=== PATIENT | female | born 1985 | race Caucasian/White ===

== ENCOUNTER 2017-05-15 19:11 | Emergency (ER) | payer SELFPAY ==
[~2017-05-15] VITALS: Ht 167.6 cm; Wt 104.3 kg
[2017-05-15 20:10] VITALS: BP 134/87
[2017-05-15] MEDS ORDERED: KETOROLAC TROMETH 60MG/2ML VIAL IM ONE (20:15)
== END 2017-05-15 20:17 | disposition home or self-care (01) ==
LOC: ER 19:15
DX: K08.89 Other specified disorders of teeth and supporting structures (principal); Z88.8 Allergy status to other drugs, medicaments and biological substances
CPT/HCPCS: 96372; 99283; J1885

== ENCOUNTER 2022-02-17 09:36 | Emergency (ER) | payer MEDICAID ==
[~2022-02-17] VITALS: Ht 167.6 cm; Wt 95.3 kg
[2022-02-17] MEDS ORDERED: KETOROLAC TROMETH 60MG/2ML VIAL IM ONE (11:00)
[2022-02-17] MEDS ORDERED: cefTRIAXone W LIDOCAINE 1 GM IM IM ONE (11:00)
[2022-02-17] MEDS ORDERED: CLIN300C8 PO (11:04)
[2022-02-17] MEDS ORDERED: CEPH-509 PO (11:04)
[2022-02-17] MEDS ORDERED: IBU600T PO (11:04)
[2022-02-17] MEDS ORDERED: cefTRIAXone SOD 1,000 MG VL IM ONE (11:15)
[2022-02-17 11:35] VITALS: BP 138/67
== END 2022-02-17 11:38 | disposition home or self-care (01) ==
LOC: ER 09:36
DX: K02.9 Dental caries, unspecified (principal); K08.89 Other specified disorders of teeth and supporting structures; Z88.8 Allergy status to other drugs, medicaments and biological substances
CPT/HCPCS: 96372; 99284; J0696; J1885

== ENCOUNTER 2022-08-05 10:30 | Emergency (ER) | payer SELFPAY ==
[~2022-08-05] VITALS: Ht 167.6 cm; Wt 106.9 kg
[~2022-08-05 10:30] MED LIST: CEPH-509 PO; CLIN300C8 PO; IBU600T PO
[2022-08-05 10:56] VITALS: BP 150/80
[2022-08-05] MEDS ORDERED: HYDROcodone-ACET 10/325MG TAB PO ONE (13:45)
[2022-08-05] MEDS ORDERED: IBUP600T27 PO (15:01)
[2022-08-05] MEDS ORDERED: HYDR-4902 PO (15:01)
[2022-08-05] MEDS ORDERED: DICL500C76 PO (15:01)
== END 2022-08-05 15:22 | disposition home or self-care (01) ==
LOC: ER 10:30
DX: J02.8 Acute pharyngitis due to other specified organisms (principal); B97.89 Other viral agents as the cause of diseases classified elsewhere; N61.0 Mastitis without abscess; Z79.1 Long term (current) use of non-steroidal anti-inflammatories (NSAID); Z79.2 Long term (current) use of antibiotics; Z88.8 Allergy status to other drugs, medicaments and biological substances
CPT/HCPCS: 87070; 87880

== ENCOUNTER 2022-10-04 21:07 | Inpatient (IN) | payer MEDICAID ==
[~2022-10-04] VITALS: Ht 167.6 cm; Wt 101.0 kg
[~2022-10-04 21:07] MED LIST changes: +DICL500C76 PO; +HYDR-4902 PO; +IBUP600T27 PO
[2022-10-04 23:27] LABS: Basophils # (auto) 0.1 10 ^3/uL (0-0.2); Basophils % (auto) 0.6 % (0.0-2.0); Eosinophils # (auto) 0.1 10 ^3/uL (0-0.8); Hematocrit 39.6 % (36.0-46.0); Hemoglobin 12.6 g/dL (12.2-16.2); Lymphocytes # (auto) 3.6 10 ^3/uL (0.4-5.4); Lymphocytes % (auto) 30.9 % (10.0-50.0); Mean Corpuscular Hgb Conc. 31.9 g/dL (32.0-36.0); Mean Corpuscular Volume 90.9 fL (80.0-100.0); Monocytes % (auto) 8.4 % (0.0-12.0); Neutrophils # (auto) 6.8 10 ^3/uL (1.6-8.6); Neutrophils % (auto) 59.1 % (37.0-80.0); Red Blood Cells 4.35 10^6/uL (4.0-5.20); Red Cell Distribution Width 14.1 % (11.8-14.3); White Blood Cell 11.5 10^3/uL (4.4-10.8)
[2022-10-04 23:50] LABS: Albumin 3.4 g/dL (3.4-5.0); BUN/Creatinine Ratio 13.5; Calcium 9.1 mg/dL (8.5-10.1); Potassium 3.7 mmol/L (3.5-5.1)
[2022-10-04 23:53] LABS: Bilirubin, Total 0.2 mg/dL (0.2-1.0); Total Protein 7.3 g/dL (6.4-8.2)
[2022-10-05] MEDS ORDERED: ASPirin 325 MG TAB PO ONE (01:00)
[2022-10-05] MEDS ORDERED: NITROGLYCERIN 0.4 MG SL TAB SL PRN (02:30)
[2022-10-05 05:18] LABS: Basophils # (auto) 0.1 10 ^3/uL (0-0.2); Basophils % (auto) 0.6 % (0.0-2.0); Eosinophils # (auto) 0.1 10 ^3/uL (0-0.8); Eosinophils % (auto) 1.2 % (0.0-7.0); Hematocrit 38.3 % (36.0-46.0); Hemoglobin 12.6 g/dL (12.2-16.2); Lymphocytes # (auto) 3.5 10 ^3/uL (0.4-5.4); Lymphocytes % (auto) 30.7 % (10.0-50.0); Mean Corpuscular Hemoglobin 29.8 pg (28.0-32.0); Mean Corpuscular Hgb Conc. 32.9 g/dL (32.0-36.0); Mean Corpuscular Volume 90.5 fL (80.0-100.0); Monocytes # (auto) 1.1 10 ^3/uL (0-1.3); Monocytes % (auto) 9.4 % (0.0-12.0); Neutrophils # (auto) 6.7 10 ^3/uL (1.6-8.6); Neutrophils % (auto) 58.1 % (37.0-80.0); Nucleated Red Blood Cells % 0.1 %; Red Blood Cells 4.23 10^6/uL (4.0-5.20); Red Cell Distribution Width 14.1 % (11.8-14.3); White Blood Cell 11.5 10^3/uL (4.4-10.8)
[2022-10-05 05:34] LABS: Albumin 3.6 g/dL (3.4-5.0); Calcium 8.7 mg/dL (8.5-10.1); Potassium 3.6 mmol/L (3.5-5.1)
[2022-10-05 05:38] LABS: BUN/Creatinine Ratio 18.6; Bilirubin, Total 0.3 mg/dL (0.2-1.0); Total Protein 7.6 g/dL (6.4-8.2)
[2022-10-05] MEDS: MORPHINE SULFATE INJ 2 MG/ml SYRG IV PRN ×4 (09:31→20:51)
[2022-10-05] MEDS ORDERED: LORazepam 2MG/ML-1ML VIAL IV PRN ×3 (10:00→10:45)
[2022-10-05] MEDS ORDERED: LORazepam 2MG/ML-1ML VIAL ONE (10:09)
[2022-10-05] MEDS ORDERED: MORPHINE SULFATE INJ 2 MG/ml SYRG IV PRN (12:15)
[2022-10-05] MEDS ORDERED: HYDROcodone-ACET 5/325MG TAB PO PRN (12:15)
[2022-10-05] MEDS ORDERED: diphenhdrAMINE HCL 50 MG/1 ML VL IV ONE (21:45)
[2022-10-06] MEDS: MORPHINE SULFATE INJ 2 MG/ml SYRG IV PRN ×4 (03:04→18:55)
[2022-10-06 09:59] VITALS: BP 138/81
[2022-10-06] MEDS ORDERED: LORazepam 2MG/ML-1ML VIAL IV PRN (11:15)
[2022-10-06 11:30] VITALS: BP 138/87
[2022-10-06 12:35] VITALS: BP 116/79
[2022-10-06] MEDS ORDERED: ALPRAZolam 0.5 MG TAB PO PRN (13:30)
[2022-10-06] MEDS: HYDROcodone-ACET 10/325MG TAB PO PRN ×2 (13:42→20:48)
[2022-10-06] MEDS ORDERED: LORazepam 2MG/ML-1ML VIAL IV ONE (15:15)
[2022-10-06 16:57] VITALS: BP 114/76
[2022-10-06 22:00] VITALS: BP 112/72
[2022-10-07] MEDS: HYDROcodone-ACET 10/325MG TAB PO PRN ×3 (03:44→15:35)
[2022-10-07 05:00] VITALS: BP 104/68
[2022-10-07] MEDS: MORPHINE SULFATE INJ 2 MG/ml SYRG IV PRN ×2 (06:47→12:22)
[2022-10-07 09:06] VITALS: BP 124/77
[2022-10-07] MEDS ORDERED: diphenhdrAMINE HCL 50 MG/1 ML VL IV PRN (12:00)
[2022-10-07] MEDS ORDERED: ONDANSETRON HCL 4 MG/2 ML VIAL IV PRN (12:15)
[2022-10-07 12:50] VITALS: BP 120/59
[2022-10-07] MEDS ORDERED: diphenhdrAMINE HCL 25 MG CAP PO PRN (16:00)
[2022-10-07 16:36] VITALS: BP 113/73
[2022-10-07] MEDS ORDERED: GADOTERATE MEG 10 MMOL/20ml INJ (0.5MMOL/ml) IV ONE (16:44)
[2022-10-07 19:42] VITALS: BP 116/74
[2022-10-07] MEDS ORDERED: HYDROcodone-ACET 10/325MG TAB PO ONE (20:00)
== END 2022-10-07 20:20 | disposition home or self-care (01) | DRG 58 ==
LOC: ER 21:11 → TELE 10-05 02:32 → TELE-EAST 10-06 09:42
PROVIDERS: ADMIT Internal Medicine; ATTEND Internal Medicine
DX: R29.810 Facial weakness (principal); E04.1 Nontoxic single thyroid nodule; F17.290 Nicotine dependence, other tobacco product, uncomplicated; F32.A Depression, unspecified; F41.9 Anxiety disorder, unspecified; Z20.822 Contact with and (suspected) exposure to COVID-19; R20.0 Anesthesia of skin; H53.8 Other visual disturbances; R51.9 Headache, unspecified; R20.2 Paresthesia of skin; Z83.3 Family history of diabetes mellitus
CPT/HCPCS: 36415; 70551; 70553; 72142; 72157; 76536; 80053; 84443; 84484; 84702; 85025; 87426; 93005; 95819; 96374; 96375; 97163; G0378

== ENCOUNTER 2024-01-19 01:40 | Emergency (ER) | payer MEDICAID, OTHER ==
[~2024-01-19] VITALS: Ht 167.6 cm; Wt 101.2 kg
[2024-01-19 02:50] LABS: Basophils # (auto) 0.1 10 ^3/uL (0-0.2); Basophils % (auto) 0.8 % (0.0-2.0); Eosinophils # (auto) 0.1 10 ^3/uL (0-0.8); Hematocrit 38.6 % (36.0-46.0); Lymphocytes # (auto) 2.4 10 ^3/uL (0.4-5.4); Lymphocytes % (auto) 19.9 % (10.0-50.0); Mean Corpuscular Hemoglobin 30.1 pg (28.0-32.0); Mean Corpuscular Hgb Conc. 33.8 g/dL (32.0-36.0); Mean Corpuscular Volume 89.1 fL (80.0-100.0); Monocytes # (auto) 0.7 10 ^3/uL (0-1.3); Monocytes % (auto) 5.7 % (0.0-12.0); Neutrophils # (auto) 8.8 10 ^3/uL (1.6-8.6); Neutrophils % (auto) 72.6 % (37.0-80.0); Red Blood Cells 4.33 10^6/uL (4.0-5.20); Red Cell Distribution Width 14.6 % (11.8-14.3); White Blood Cell 12.1 10^3/uL (4.4-10.8)
[2024-01-19 03:00] LABS: Alanine Aminotransferase 61 U/L (7-40); Albumin 4.5 g/dL (3.2-4.8); Alkaline Phosphatase 66 U/L (46-116); Anion Gap 6 (5-15); Aspartate Aminotransferase 58 U/L (13-40); BUN/Creatinine Ratio 14.9 (10.0-20.0); Bilirubin, Total 0.6 mg/dL (0.2-1.0); Blood Urea Nitrogen 13 mg/dL (9-23); Carbon Dioxide 24 mmol/L (20-30); Chloride 104 mmol/L (98-107); Glucose 103 mg/dL (74-106); Sodium 134 mmol/L (136-145); Total Protein 7.1 g/dL (5.7-8.2)
[2024-01-19] MEDS: SODIUM CHLORIDE 0.9% 1,000 ML IVB ONE (03:30)
[2024-01-19] MEDS: MORPHINE SULFATE 10 MG/ML INJ 1ML SDV IV ONE (03:30)
[2024-01-19] MEDS: KETOROLAC TROMETH 30 MG/ML 1ML VIAL IV ONE (05:00)
[2024-01-19] MEDS: ONDANSETRON HCL 4 MG/2 ML VIAL IV ONE (05:01)
[2024-01-19] MEDS: MORPHINE SULFATE INJ 2 MG/ml SYRG IV ONE (05:36)
[2024-01-19 06:54] LABS: Urine Bacteria FEW /hpf (None Seen); Urine Blood 3+ /uL (Negative); Urine Clarity Clear (Clear); Urine Color Light-Yellow (Yellow); Urine Mucus FEW (None Seen); Urine Protein, UAD Negative (Negative); Urine Specific Gravity 1.015 (1.001-1.035); Urine Urobilinogen Normal (Negative); Urine WBC 7 /hpf (0 - 5); Urine pH 5.5 (5.0-9.0)
[2024-01-19] MEDS ORDERED: IBU600T PO (10:42)
[2024-01-19 11:01] VITALS: BP 125/76; PULSE 82; RESP 20; TEMP 98.3; O2SAT 100
== END 2024-01-19 11:05 | disposition home or self-care (01) ==
LOC: EDUNIT# 01:40 → ER 01:40 → EDBD 01:40 → ER 11:02
DX: N83.201 Unspecified ovarian cyst, right side (principal); R10.2 Pelvic and perineal pain; R31.9 Hematuria, unspecified; Z88.8 Allergy status to other drugs, medicaments and biological substances; Z90.49 Acquired absence of other specified parts of digestive tract
CPT/HCPCS: 36415; 74176; 76817; 76856; 80053; 81001; 84702; 85025; 96361; 96374; 96375; 99285; J1885; J2270; J2405; J7030

== ENCOUNTER 2025-04-01 12:30 | Inpatient (IN) | payer OTHER ==
[~2025-04-01] VITALS: Ht 167.6 cm; Wt 104.3 kg
[~2025-04-01 12:30] MED LIST changes: -CEPH-509 PO; -CLIN300C8 PO; -DICL500C76 PO; -HYDR-4902 PO; -IBUP600T27 PO
[2025-04-01] MEDS: NITROGLYCERIN 0.4 MG SL TAB SL ONE (13:01)
--- NOTE | 2025-04-01 13:02 | ECG ---
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
[2025-04-01 13:33] LABS: Hematocrit 35.8 % (36.0-46.0); Hemoglobin 12.2 g/dL (12.2-16.2); Mean Corpuscular Hemoglobin 30.6 pg (28.0-32.0); Mean Corpuscular Volume 90.2 fL (80.0-100.0); Nucleated Red Blood Cells % 0.1 %
[2025-04-01 13:43] LABS: Potassium 4.4 mmol/L (3.5-5.1); Sodium 142 mmol/L (136-145)
[2025-04-01 13:44] LABS: Anion Gap 9 (5-15); Calcium 9.1 mg/dL (8.7-10.4); Carbon Dioxide 24 mmol/L (20-31)
[2025-04-01 13:49] LABS: BUN/Creatinine Ratio 16.7 (10.0-20.0); Blood Urea Nitrogen 15 mg/dL (9-23); Chloride 109 mmol/L (98-107); Glucose 115 mg/dL (74-106)
[2025-04-01] MEDS: HYDROcodone-ACET 10/325MG TAB PO ONE (13:56)
[2025-04-01] MEDS: METOPROLOL TARTRATE 25 MG TAB PO ONE (15:45)
--- NOTE | 2025-04-01 16:03 | ED.PDOC ---
History of Present Illness HPI Comments 40-year-old female brought by paramedics because of chest pain. She was sitting down when she started to have chest pain. She has a history of premature ventricular contractions for which she does take metoprolol. Apart from premature ventricular contraction she does have a history of hypotension. Patient started to have this chest pain yesterday progressively getting worse this morning. She has been followed up [facility] many times for similar symptom. Heart rate was 15 on arrival. Continues to have chest pain in the ER. She did take aspirin. Denies any other symptoms. Chief Complaint: Chest Pain Time Seen by MD: 12:44 Primary Care Provider: JENNIFER Reviewed Notes: Nurses Notes, Medications, Allergies Allergies: Coded Allergies: Metoclopramide (Verified Allergy, Unknown, 05/15/17) Nalbuphine (Verified Allergy, Unknown, 05/15/17) Home Meds Active Scripts Ibuprofen Micronized (MOTRIN TABLET) 600 Mg Tb, 600 MG PO TID PRN for 5 Days, #15 TAB *Black box warning-NSAIDS can increase risk of [place] & hypertension, GI irritation, ulceration, bleed, perferation. Do not use post cardiac surgery. Use short duration/lowest effective dose. 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: No Pertinent FILM LIBRARY CLERK History Family History Family History: Reviewed,noncontributory to illness Social History Smoker: Non-Smoker Alcohol: Denies ETOH Use Drugs: Denies Drug Use Lives In: Home Constitutional: denies: chills, diaphoresis, fatigue, fever, malaise, sweats, weakness, others EENTM: denies: blurred vision, double vision, ear bleeding, ear discharge, ear drainage, ear pain, ear ringing, eye pain, eye redness, hearing loss, mouth pain, mouth swelling, nasal discharge, nose bleeding, nose congestion, nose pain, photophobia, tearing, throat pain, throat swelling, voice changes, others Respiratory: denies: cough, hemoptysis, orthopnea, SOB at rest, shortness of breath, SOB with excertion, stridor, wheezing, others Cardiovascular: reports: chest pain; denies: dizzy spells, diaphoresis, Dyspnea on exertion, edema, irregular heart beat, left arm pain, lightheadedness, palpitations, PND, syncope, others Gastrointestinal: denies: abdomen distended, abdominal pain, blood streaked bowels, constipated, diarrhea, dysphagia, difficulty swallowing, hematemesis, melena, nausea, poor appetite, poor fluid intake, rectal bleeding, rectal pain, vomiting, others Genitourinary: denies: abnormal vagina bleeding, burning, dyspareunia, dysuria, flank pain, frequency, hematuria, incontinence, pain, , vagina discharge, urgency, others Neurological: denies: dizziness, fainting, headache, left sided numbness, left sided weakness, numbness, paresthesia, pre-existing deficit, right sided numbness, right sided weakness, seizure, speech problems, tingling, tremors, weakness, others Musculoskeletal: denies: back pain, gout, joint pain, joint swelling, muscle pain, muscle stiffness, neck pain, others Integumetry: denies: bruises, change in color, change in hair/nails, dryness, laceration, lesions, lumps, rash, wounds, others Allergic/Immunocompromised: denies: Difficulty Healing, Frequent Infections, Hives, Itching, others Hematologic/Lymphatic: denies: anemia, blood clots, easy bleeding, easy bruising, swollen glands, others Endocrine: denies: excessive hunger, excessive sweating, excessive thirst, excessive urination, flushing, intolerance to cold, intolerance to heat, unexplained weight gain, unexplained weight loss, others Psychiatric: denies: anxiety, bipolar disorder, depression, hopeless, panic disorder, schizophrenia, sleepless, suicidal, others Physical Exam General Appearance: Moderate Distress HEENT: Normal ENT Inspection, Pharynx Normal, TMs Normal Neck: Full Range of Motion, Non-Tender, Normal, Normal Inspection Respiratory: Chest Non-Tender, Lungs Clear, No Accessory Muscle Use, No Respiratory Distress, Normal Breath Sounds Cardiovascular: No Edema, No JVD, No Murmur, No Gallop, Normal Peripheral Pulses, Regular Rate/Rhythm Breast Exam: Deferred Gastrointestinal: No Organomegaly, Non Tender, No Pulsatile Mass, Normal Bowel Sounds, Soft Genitalia: Deferred Pelvic: Deferred Rectal: Deferred Extremities: No calf tenderness, Normal capillary refill, Normal inspection, Normal range of motion, Non-tender, No pedal edema Musculoskeletal : Apperance: Normal Neurologic: Alert, live hanger II-XII nml as Tested, No Motor Deficits, Normal Affect, Normal Mood, No Sensory Deficits Cerebellar Function: Normal Reflexes: Normal Skin: Dry, Normal Color, Warm Peripheral Pulses: 3+ Radial (R), 3+ Radial (L) Lymphatic: No Adenopathy Was a procedure done? Was a procedure done?: No Differential Dx Considerations may include: Arrhythmia Electrolyte imbalance X-Ray, Labs, Meds, VS Vital Signs Date Time Temp Pulse Resp B/P (MAP) Pulse Ox O2 Delivery O2 Flow Rate FiO2 04/01/25 16:44 61 129/82 04/01/25 16:02 47 04/01/25 15:45 61 118/85 04/01/25 15:32 126/72 04/01/25 13:41 98.7 56 16 122/84 (97) 98 98.7 04/01/25 13:02 98.7 58 16 105/62 (76) 98 98.7 04/01/25 13:02 58 04/01/25 13:01 105/62 04/01/25 12:36 59 04/01/25 12:35 99.1 70 18 146/107 97 99.1 Lab Test 04/01/25 14:17 04/01/25 13:11 Range/Units Troponin I High Sensitivity < 3 L < 3 L </=34 ng/L White Blood Count 5.8 4.4-10.8 10^3/uL Red Blood Count 3.97 L 4.0-5.20 10^6/uL Hemoglobin 12.2 12.2-16.2 g/dL Hematocrit 35.8 L 36.0-46.0 % Mean Corpuscular Volume 90.2 80.0-100.0 fL Mean Corpuscular Hemoglobin 30.6 28.0-32.0 pg Mean Corpuscular Hemoglobin Concent 34.0 32.0-36.0 g/dL Red Cell Distribution Width 14.5 H 11.8-14.3 % Platelet Count 401 140-450 10^3/uL Mean Platelet Volume 7.4 6.9-10.8 fL Neutrophils (%) (Auto) 64.5 37.0-80.0 % Lymphocytes (%) (Auto) 29.2 10.0-50.0 % Monocytes (%) (Auto) 4.5 0.0-12.0 % Eosinophils (%) (Auto) 1.1 0.0-7.0 % Basophils (%) (Auto) 0.7 0.0-2.0 % Neutrophils # (Auto) 3.8 1.6-8.6 10 ^3/uL Lymphocytes # (Auto) 1.7 0.4-5.4 10 ^3/uL Monocytes # (Auto) 0.3 0-1.3 10 ^3/uL Eosinophils # (Auto) 0.1 0-0.8 10 ^3/uL Basophils # (Auto) 0 0-0.2 10 ^3/uL Nucleated Red Blood Cells 0.1 % Sodium Level 142 136-145 mmol/L Potassium Level 4.4 3.5-5.1 mmol/L Chloride Level 109 H 98-107 mmol/L Carbon Dioxide Level 24 20-31 mmol/L Anion Gap 9 5-15 Blood Urea Nitrogen 15 9-23 mg/dL Creatinine 0.90 0.550-1.02 mg/dL Glomerular Filtration Rate Calc 83 >90 mL/min BUN/Creatinine Ratio 16.7 10.0-20.0 Serum Glucose 115 H 74-106 mg/dL Calcium Level 9.1 8.7-10.4 mg/dL Current Medications Medications (Trade) Dose Ordered Sig/Dania Route Start Time Stop Time Status Last Admin Nitroglycerin (Ntrostat Sublingual) 0.4 mg ONCE ONCE SL 04/01/25 12:45 04/01/25 12:46 DC 04/01/25 13:01 Acetaminophen/ Hydrocodone Bitart ([place] 10/325MG Tab) 1 tab ONCE ONCE PO 04/01/25 13:45 04/01/25 13:46 DC 04/01/25 13:56 Metoprolol Tartrate (Lopressor Tablet) 25 mg ONCE ONCE PO 04/01/25 15:45 04/01/25 15:46 DC 04/01/25 15:45 Patient alert. Complaining of chest pain. EKG does show premature ventricular contraction. Vitals stable. Answering questions. Was given [place]. Was given metoprolol. Was given nitroglycerin. She continues to have chest pain. Cardiac marker within normal limits. She will need echocardiogram. Explained to the patient. Continue to monitor. [place] approved inpatient admission [id number]. Time of 1ST Reevaluation: 16:01 Reevaluation 1ST: Unchanged Patient Education/Counseling: Diagnosis, Treatment, Prognosis Family Education/Counseling: No Family Present SEPSIS Sepsis Screen Date sepsis recognized/suspect: Apr 01, 2025 Time Sepsis recognized/suspect: 1234 Recent Procedure: No On Antibiotic Therapy: No Respiratory Rate >20: No Heart Rate >90: No Temp<36 C (96.8 F) or >38.3 C: No SBP <90 or MAP <65 mmHG: No New Acute Mental Status Change: No Is the patient on CPAP, BIPAP,: No Physician Orders Electrocardigram (04/01/25 13:36) Electrocardigram (04/01/25 15:36) Urinalysis (04/01/25 12:44) Stat Ekg For Chest Pain (04/01/25 15:38) Vital Signs Date Time Temp Pulse Resp B/P (MAP) Pulse Ox O2 Delivery O2 Flow Rate FiO2 04/01/25 16:44 61 129/82 04/01/25 16:02 47 04/01/25 15:45 61 118/85 04/01/25 15:32 126/72 04/01/25 13:41 98.7 56 16 122/84 (97) 98 98.7 04/01/25 13:02 98.7 58 16 105/62 (76) 98 98.7 04/01/25 13:02 58 04/01/25 13:01 105/62 04/01/25 12:36 59 04/01/25 12:35 99.1 70 18 146/107 97 99.1 Laboratory Tests Test 04/01/25 13:11 White Blood Count 5.8 10^3/uL (4.4-10.8) Medications Medications Dose Ordered Sig/Dania Route Start Time Stop Time Status Last Admin Dose Admin Acetaminophen/ Hydrocodone Bitart 1 tab ONCE ONCE PO 04/01/25 13:45 04/01/25 13:46 DC 04/01/25 13:56 Metoprolol Tartrate 25 mg ONCE ONCE PO 04/01/25 15:45 04/01/25 15:46 DC 04/01/25 15:45 Nitroglycerin 0.4 mg ONCE ONCE SL 04/01/25 12:45 04/01/25 12:46 DC 04/01/25 13:01 Departure 1 Departure Time of Disposition: 16:02 Impression: Primary Impression: Chest pain of unknown etiology Additional Impression: Premature ventricular contraction Disposition: ADMITTED INPATIENT Admit to: Med Surg Condition: Guarded Critical Care Note Critical Care Time?: Yes (90 min-critical care time only) Critical care comment: Continues to have chest pain Stability Stability form required: No Heart Score Heart Score: Heart Score Response (Comments) Value History Slightly Suspicious 0 EKG Normal 0 Age <45 0 Risk Factors 1 or 2 risk factors 1 Troponin Normal limit 0 Total 1 SELVIN VEGA MD Apr 01, 2025 16:03
[2025-04-01] MEDS: MORPHINE SULFATE 4 MG/ML SYR/VIAL IV ONE (18:57)
[2025-04-01] MEDS: ONDANSETRON HCL 4 MG/2 ML VIAL IV ONE (18:58)
--- NOTE | 2025-04-01 19:40 | DVHHP2 ---
Admitting Diagnosis: Chest pain History of Present Illness 40-year-old female brought by paramedics because of chest pain. She was sitting down when she started to have chest pain. She has a history of premature ventricular contractions for which she does take metoprolol. Apart from premature ventricular contraction she does have a history of hypotension. Patient started to have this chest pain yesterday progressively getting worse this morning. She has been followed up [facility] many times for similar symptom. Heart rate was 15 on arrival. Continues to have chest pain in the ER. She did take aspirin. Denies any other symptoms. PAST MEDICAL HISTORY: HTN Surgical History: Denies all surgeries FIREFIGHTER History: No Pertinent FIREFIGHTER History Family History Family History: Reviewed,noncontributory to illness Social History Smoker: Non-Smoker Alcohol: Denies ETOH Use Drugs: Denies Drug Use Lives In: Home Patient Family History: Depression G8 MOTHER FH: atrial fibrillation G8 MOTHER High cholesterol G8 MOTHER Ventricular fibrillation G8 MOTHER Allergies: Coded Allergies: Metoclopramide (Verified Allergy, Unknown, 05/15/17) Nalbuphine (Verified Allergy, Unknown, 05/15/17) Home Meds Active Scripts Ibuprofen Micronized (MOTRIN TABLET) 600 Mg Tb, 600 MG PO TID PRN for 5 Days, #15 TAB *Black box warning-NSAIDS can increase risk of [place] & hypertension, GI irritation, ulceration, bleed, perferation. Do not use post cardiac surgery. Use short duration/lowest effective dose. Prov:LEDA MCKENNA MD 01/19/24 Current Medications Current Medications Medications (Trade) Dose Ordered Sig/Dania Route PRN Reason Start Time Stop Time Status Last Admin Sodium Chloride (Saline Lock Ns) 10 ml Q8HR IV 04/01/25 22:00 Docusate Sodium (Colace Capsule) 100 mg BIDPRN PRN PO FOR CONSTIPATION 04/01/25 20:00 Acetaminophen (Tylenol Tablet) 650 mg Q6HP PRN PO PAIN SCALE 1-3 OR TEMP>100.4 04/01/25 20:00 Acetaminophen/ Hydrocodone Bitart ([place] 5/325MG Tab) 1 tab Q4HP PRN PO MODERATE PAIN (4-6 PAIN SCALE) 04/01/25 20:00 Ondansetron HCl (Zofran) 4 mg Q4HP PRN IV NAUSEA / VOMITING 04/01/25 20:00 Enoxaparin Sodium (Lovenox) 40 mg DAILY SC 04/02/25 10:00 Nitroglycerin (Ntrostat Sublingual) 0.4 mg Q5MINP PRN SL FOR CHEST PAIN 04/01/25 20:00 Morphine Sulfate 2 mg Q30M PRN IV FOR CHEST PAIN 04/01/25 20:00 Vital Signs Vital Signs Date Time Temp Pulse Resp B/P (MAP) Pulse Ox O2 Delivery O2 Flow Rate FiO2 04/01/25 19:27 62 20 126/68 04/01/25 18:58 98 04/01/25 13:41 98.7 98.7 Physical Exam gen: 40 y.o. woman, lying in bed. mild distress HEENT: [facility] Heart: RRR Lung: CTA b/l Abd: soft, non-tender, non-distended Msk: no edema or cyanosis Neuro: Aox3, no focal deficit SEPSIS Sepsis Screen Date sepsis recognized/suspect: Apr 01, 2025 Time Sepsis recognized/suspect: 1234 Recent Procedure: No On Antibiotic Therapy: No Respiratory Rate >20: No Heart Rate >90: No Temp<36 C (96.8 F) or >38.3 C: No SBP <90 or MAP <65 mmHG: No New Acute Mental Status Change: No Is the patient on CPAP, BIPAP,: No Physician Orders Electrocardigram (04/01/25 13:36) Electrocardigram (04/01/25 15:36) Urinalysis (04/01/25 12:44) Stat Ekg For Chest Pain (04/01/25 15:38) Comprehensive Metabolic Panel (04/02/25 05:00) Comprehensive Metabolic Panel (04/03/25 05:00) Comprehensive Metabolic Panel (04/04/25 05:00) Comprehensive Metabolic Panel (04/05/25 05:00) Comprehensive Metabolic Panel (04/06/25 05:00) Complete Blood Count (04/02/25 05:00) Complete Blood Count (04/03/25 05:00) Complete Blood Count (04/04/25 05:00) Complete Blood Count (04/05/25 05:00) Complete Blood Count (04/06/25 05:00) Admit (04/01/25 19:52) Code Status (04/01/25 19:52) Vital Signs .PER UNIT PROTOCOL (04/01/25 19:52) Review Orders With Adm.Md (04/01/25 19:52) Encourage Activity As Tolerate (04/01/25:52) Sodium Chloride Lock (Saline Lock Ns) (04/01/25 22:00) Docusate Sodium Capsule (Colace Capsule) (04/01/25 20:00) Acetaminophen Tablet (Tylenol Tablet) (04/01/25 20:00) Notify Md Of Changes From Base (04/01/25 19:52) Advance Directive (04/01/25 19:52) Patient Condition (04/01/25 19:52) Allergies (04/01/25:52) Hydrocodone-Acet 5/325mg Tab ([place] 32 (04/01/25 20:00) Ondansetron Hcl (Zofran) (04/01/25 20:00) Enoxaparin Sodium (Lovenox) (04/02/25 10:00) Nitroglycerin Sublingual (Ntrostat Subli (04/01/25 20:00) Morphine Sulfate Injection (04/01/25 20:00) Notify Md Of Changes From Base (04/01/25 19:52) Ordnance Truck Installation Supervisor For 24 Hours (04/01/25 19:52) Emergency Dysrhythmia Protocol (04/01/25:52) Rhythm Strips Once Every Shift (04/01/25 19:52) Oxygen By Nasal Cannula (04/01/25:52) Cardiolite Multiple (04/01/25 20:22) Vital Signs Date Time Temp Pulse Resp B/P (MAP) Pulse Ox O2 Delivery O2 Flow Rate FiO2 04/01/25 19:27 62 20 126/68 04/01/25 18:58 66 20 128/75 (92) 98 04/01/25 18:57 66 20 128/75 04/01/25 16:44 61 129/82 04/01/25 16:02 47 04/01/25 15:45 61 118/85 04/01/25 15:32 126/72 04/01/25 13:41 98.7 56 16 122/84 (97) 98 98.7 04/01/25 13:02 98.7 58 16 105/62 (76) 98 98.7 04/01/25 13:02 58 04/01/25 13:01 105/62 04/01/25 12:36 59 04/01/25 12:35 99.1 70 18 146/107 97 99.1 Laboratory Tests Test 04/01/25 13:11 White Blood Count 5.8 10^3/uL (4.4-10.8) Medications Medications Dose Ordered Sig/Dania Route Start Time Stop Time Status Last Admin Dose Admin Acetaminophen/ Hydrocodone Bitart 1 tab ONCE ONCE PO 04/01/25 13:45 04/01/25 13:46 DC 04/01/25 13:56 Metoprolol Tartrate 25 mg ONCE ONCE PO 04/01/25 15:45 04/01/25 15:46 DC 04/01/25 15:45 Morphine Sulfate 4 mg ONCE ONCE IV 04/01/25 19:00 04/01/25 19:01 DC 04/01/25 18:57 Nitroglycerin 0.4 mg ONCE ONCE SL 04/01/25 12:45 04/01/25 12:46 DC 04/01/25 13:01 Ondansetron HCl 4 mg ONCE ONCE IV 04/01/25 19:00 04/01/25 19:01 DC 04/01/25 18:58 Results Labs Test 04/01/25 14:17 04/01/25 13:11 Range/Units Troponin I High Sensitivity < 3 L </=34 ng/L White Blood Count 5.8 4.4-10.8 10^3/uL Red Blood Count 3.97 L 4.0-5.20 10^6/uL Hemoglobin 12.2 12.2-16.2 g/dL Hematocrit 35.8 L 36.0-46.0 % Mean Corpuscular Volume 90.2 80.0-100.0 fL Mean Corpuscular Hemoglobin 30.6 28.0-32.0 pg Mean Corpuscular Hemoglobin Concent 34.0 32.0-36.0 g/dL Red Cell Distribution Width 14.5 H 11.8-14.3 % Platelet Count 401 140-450 10^3/uL Mean Platelet Volume 7.4 6.9-10.8 fL Neutrophils (%) (Auto) 64.5 37.0-80.0 % Lymphocytes (%) (Auto) 29.2 10.0-50.0 % Monocytes (%) (Auto) 4.5 0.0-12.0 % Eosinophils (%) (Auto) 1.1 0.0-7.0 % Basophils (%) (Auto) 0.7 0.0-2.0 % Neutrophils # (Auto) 3.8 1.6-8.6 10 ^3/uL Lymphocytes # (Auto) 1.7 0.4-5.4 10 ^3/uL Monocytes # (Auto) 0.3 0-1.3 10 ^3/uL Eosinophils # (Auto) 0.1 0-0.8 10 ^3/uL Basophils # (Auto) 0 0-0.2 10 ^3/uL Nucleated Red Blood Cells 0.1 % Sodium Level 142 136-145 mmol/L Potassium Level 4.4 3.5-5.1 mmol/L Chloride Level 109 H 98-107 mmol/L Carbon Dioxide Level 24 20-31 mmol/L Anion Gap 9 5-15 Blood Urea Nitrogen 15 9-23 mg/dL Creatinine 0.90 0.550-1.02 mg/dL Glomerular Filtration Rate Calc 83 >90 mL/min BUN/Creatinine Ratio 16.7 10.0-20.0 Serum Glucose 115 H 74-106 mg/dL Calcium Level 9.1 8.7-10.4 mg/dL Primary Diagnosis Chest pain rule out ACS Plan Troponin negative x2 EKG shows sinus rhythm Check echo of the heart to rule out ACS npo after midnight nuclear stress test to assess for ischemic cardiomyopathy Full code Resume home meds Lovenox for DVT prophylaxis No GI prophylaxis needed Plan discussed with: Patient Problems List: (1) Chest pain of unknown etiology Status: Acute Date of Service: Apr 01, 2025 Billing Provider: AR RODRÍGUEZ MD Common Visit Codes: [id number] INP/OBS CARE (MOD) AR RODRÍGUEZ MD Apr 01, 2025 19:40
[2025-04-01] MEDS ORDERED: DOCUSATE SOD 100 MG CAP PO PRN (20:00)
[2025-04-01 20:58] LABS: Urine Amorphous Crystal FEW /hpf (None Seen); Urine Protein, UAD 1+ (Negative); Urine WBC Clumps PRESENT /hpf (None Seen)
[2025-04-01 22:00] VITALS: BP 131/85; PULSE 49; RESP 16; TEMP 98.1; O2SAT 97
[2025-04-01] MEDS: HYDROcodone-ACET 5/325MG TAB PO PRN (22:15)
[2025-04-01] MEDS: SODIUM CHLOR 0.9% PF (SALINE LOCK) 10ML VIAL/SYR IV SCH (22:20)
[2025-04-01] MEDS ORDERED: PREG200C19 PO (22:33)
[2025-04-01] MEDS ORDERED: ASPI1TAB20 PO (22:33)
[2025-04-01] MEDS ORDERED: METO25TA5 PO (22:33)
[2025-04-01] MEDS ORDERED: SUMA50TA2 PO (22:33)
[2025-04-01] MEDS ORDERED: ZOLP10TA PO (22:33)
[2025-04-01] MEDS ORDERED: PREG50CA PO (22:33)
[2025-04-01] MEDS ORDERED: ZOFR4T PO (22:33)
[2025-04-01] MEDS ORDERED: SUMA100T15 PO (22:33)
[2025-04-01] MEDS ORDERED: HYDR50TA69 PO (22:33)
[2025-04-01] MEDS ORDERED: HYDR1TAB97 PO (22:33)
[2025-04-01] MEDS ORDERED: FLUT1AER6 IN (22:34)
[2025-04-02] VITALS (8 sets, daily range): BP systolic 92–147; BP diastolic 53–78; PULSE 48–83; RESP 15–20; TEMP 97.5–98.7; O2SAT 95–100
[2025-04-02] MEDS: ONDANSETRON HCL 4 MG/2 ML VIAL IV PRN (00:45)
[2025-04-02] MEDS: MORPHINE SULFATE INJ 2 MG/ml SYRG IV PRN ×2 (01:33→17:26)
[2025-04-02 07:40] LABS: Hematocrit 34.2 % (36.0-46.0); Hemoglobin 11.9 g/dL (12.2-16.2); Mean Corpuscular Hemoglobin 31.5 pg (28.0-32.0); Mean Corpuscular Volume 90.7 fL (80.0-100.0); Nucleated Red Blood Cells % 0.0 %
[2025-04-02 07:56] LABS: Alanine Aminotransferase 12 U/L (7-40); Alkaline Phosphatase 54 U/L (46-116); Anion Gap 8 (5-15); BUN/Creatinine Ratio 18.8 (10.0-20.0); Blood Urea Nitrogen 16 mg/dL (9-23); Calcium 8.8 mg/dL (8.7-10.4); Carbon Dioxide 27 mmol/L (20-31); Chloride 106 mmol/L (98-107); Glucose 91 mg/dL (74-106); Potassium 4.1 mmol/L (3.5-5.1); Sodium 141 mmol/L (136-145)
[2025-04-02 07:57] LABS: Magnesium 2.0 mg/dL (1.6-2.6); Total Protein 6.1 g/dL (5.7-8.2)
[2025-04-02 07:58] LABS: Albumin 4.1 g/dL (3.2-4.8); Bilirubin, Total 0.4 mg/dL (0.2-1.0)
[2025-04-02] MEDS: ENOXAPARIN SOD 40 MG/0.4 ML SYRINGE SC SCH (09:48)
[2025-04-02] MEDS: REGADENOSON 0.4 MG/5 ML SYRG IV ONE ×2 (11:26→11:42)
--- NOTE | 2025-04-02 12:00 | ECG ---
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
--- NOTE | 2025-04-02 12:49 | DVHPN2 ---
Progress Note Date Seen: Apr 02, 2025 Medical Necessity Reason Pt with a Central, PICC or Fol: No Subjective Patient reports: No new complaints Review of Systems: HEENT:Normal, CVS:Normal, RESPIRATORY:Normal, GI:Normal, :Normal, MSK:Normal, NEURO:Normal Objective vital signs Vital Sign Date Time Temp Pulse Resp B/P (MAP) Pulse Ox O2 Delivery O2 Flow Rate FiO2 04/02/25 09:00 98.0 54 15 106/63 (77) 100 98.0 04/02/25 08:00 Room Air* 0 21 Total Intake and Output 04/01/25 04/01/25 04/02/25 15:00 23:00 07:00 Intake Total 15 ml Output Total 0 ml Balance 15 ml medications Current Medications Medications Dose Ordered Sig/Dania Route Start Time Stop Time Status Last Admin Dose Admin Sodium Chloride 10 ml Q8HR IV 04/01/25 22:00 04/02/25 06:00 10 ML Docusate Sodium 100 mg BIDPRN PRN PO 04/01/25 20:00 Acetaminophen 650 mg Q6HP PRN PO 04/01/25 20:00 Acetaminophen/ Hydrocodone Bitart 1 tab Q4HP PRN PO 04/01/25 20:00 04/02/25 09:48 1 TAB Ondansetron HCl 4 mg Q4HP PRN IV 04/01/25 20:00 04/02/25 09:49 4 MG Nitroglycerin 0.4 mg Q5MINP PRN SL 04/01/25 20:00 Morphine Sulfate 2 mg Q30M PRN IV 04/01/25 20:00 04/02/25 01:33 2 MG Ceftriaxone Sodium 50 ml @ 100 mls/hr DAILY@09 IV 04/03/25 09:00 UNV Examination: GENERAL:Normal, HEENT:Normal, NECK:Normal, LUNGS:Normal, CVS:Normal, ABDOMEN:Normal, MSK:Normal, SKIN:Normal, NEURO:Normal, :Normal laboratory and microbiology Laboratory Tests 04/02/25 06:49 Test 04/02/25 06:49 Range/Units Serum Glucose 91 74-106 mg/dL Problem List/Assessment/Plan Problem List/Assessment/Plan #1 chest pain ?cad: cardio eval #2 uti: iv rocephin, culture #3 bradycardia #4 pvc #5 h/o cva #6 obesity Plan discussed with: Patient My Orders My Orders Orders - JOJO MOTLEY MD Procedure Category Date Status Time * Cardiology Consult CONS 04/02/25 Transmitted 12:40 Urine Bacterial MATTEO 04/02/25 Transmitted Culture 12:42 Ceftriaxone Ivpb PHA 04/03/25 Transmitted Rocephin 09:00 Ceftriaxone 1gm/50ml PHA 04/02/25 Logged D5w (Rocephin) 12:45 Date of Service: Apr 02, 2025 Billing Provider: JOJO MOTLEY MD Common Visit Codes: [id number] INP/OBS CARE(HIGH) JOJO MOTLEY MD Apr 02, 2025 12:49
[2025-04-02] MEDS: KETOROLAC TROMETH 30 MG/ML 1ML VIAL IV PRN (13:43)
--- NOTE | 2025-04-02 13:51 | DVHINCON2 ---
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 stress mpi ordered by ER MD Past Medical History reviewed Family History: Depression G8 MOTHER FH: atrial fibrillation G8 MOTHER High cholesterol G8 MOTHER Ventricular fibrillation G8 MOTHER Allergies: Coded Allergies: Metoclopramide (Verified Allergy, Unknown, 05/15/17) Nalbuphine (Verified Allergy, Unknown, 05/15/17) Home Meds Active Scripts Ibuprofen Micronized (MOTRIN TABLET) 600 Mg Tb, 600 MG PO TID PRN for 5 Days, #15 TAB *Black box warning-NSAIDS can increase risk of MT & hypertension, GI irritation, ulceration, bleed, perferation. Do not use post cardiac surgery. Use short duration/lowest effective dose. Prov:LEDA MCKENNA MD 01/19/24 Reported Medications Fluticasone-Salmeterol (Wixela Inhub 250-50 Mcg/Dose) 1 Aer Aer, 1 AER IN, AER 04/01/25 Metoprolol Tartrate (Metoprolol Tartrate) 25 Mg Tab, 25 MG PO, TAB 04/01/25 Sumatriptan Succinate (Imitrex) 50 Mg Tab, 50 MG PO, TAB 04/01/25 Sumatriptan Succinate (Sumatriptan Succinate) 100 Mg Tab, 100 MG PO, TAB 04/01/25 Aspirin (Aspir-81) 81 Mg Tab, 1 TAB PO DAILY, #30 TAB 5 Refills 04/01/25 Pregabalin (Lyrica) 50 Mg Cap, 1 CAP PO BID, #60 CAP 04/01/25 Hydrocodone-Acetaminophen (Hydrocodone/Acetaminophen 5-325 mg) 1 Tab Tab, 1 TAB PO, TAB 04/01/25 Hydroxyzine Hcl (Hydroxyzine Hcl) 50 Mg Tab, 1 TAB PO TID, #90 TAB 2 Refills 04/01/25 Zolpidem Tartrate (Ambien) 10 Mg Tab, 1 TAB PO QPM, #30 TAB 5 Refills 04/01/25 Ondansetron Odt 4MG Tab (ZOFRAN PO) 4 Mg Tb, 4 MG PO, TAB ODT TAB-DISSOLVE IN MOUTH, THEN SWALLOW 04/01/25 Current Medications Current Medications Medications (Trade) Dose Ordered Sig/Dania Route PRN Reason Start Time Stop Time Status Last Admin Sodium Chloride (Saline Lock Ns) 10 ml Q8HR IV 04/01/25 22:00 04/02/25 13:46 Docusate Sodium (Colace Capsule) 100 mg BIDPRN PRN PO FOR CONSTIPATION 04/01/25 20:00 Acetaminophen (Tylenol Tablet) 650 mg Q6HP PRN PO PAIN SCALE 1-3 OR TEMP>100.4 04/01/25 20:00 Acetaminophen/ Hydrocodone Bitart (Havana 5/325MG Tab) 1 tab Q4HP PRN PO MODERATE PAIN (4-6 PAIN SCALE) 04/01/25 20:00 04/02/25 09:48 Ondansetron HCl (Zofran) 4 mg Q4HP PRN IV NAUSEA / VOMITING 04/01/25 20:00 04/02/25 09:49 Enoxaparin Sodium (Lovenox) 40 mg DAILY SC 04/02/25 10:00 04/02/25 12:43 DC 04/02/25 09:48 Nitroglycerin (Ntrostat Sublingual) 0.4 mg Q5MINP PRN SL FOR CHEST PAIN 04/01/25 20:00 Morphine Sulfate 2 mg Q30M PRN IV FOR CHEST PAIN 04/01/25 20:00 04/02/25 01:33 Ceftriaxone Sodium 50 ml @ 100 mls/hr DAILY@09 IV 04/03/25 09:00 Ketorolac Tromethamine (Toradol Injection) 15 mg Q6HPRN PRN IV SEVERE PAIN (7-10 PAIN SCALE) 04/02/25 13:30 04/07/25 13:29 04/02/25 13:43 Review of Systems 10 pt ros otherwise negative Vital Signs Vital Signs Date Time Temp Pulse Resp B/P (MAP) Pulse Ox O2 Delivery O2 Flow Rate FiO2 04/02/25 09:00 98.0 54 15 106/63 (77) 100 98.0 04/02/25 08:00 Room Air* 0 21 Physical Exam nad s1 s2 rrr ctab soft nt/nd no edema Labs/Diagnostic Data Labs Test 04/02/25 08:20 04/02/25 06:49 04/01/25 23:38 04/01/25 20:44 Range/Units Urine Test Negative Negative White Blood Count 6.6 4.4-10.8 10^3/uL Red Blood Count 3.77 L 4.0-5.20 10^6/uL Hemoglobin 11.9 L 12.2-16.2 g/dL Hematocrit 34.2 L 36.0-46.0 % Mean Corpuscular Volume 90.7 80.0-100.0 fL Mean Corpuscular Hemoglobin 31.5 28.0-32.0 pg Mean Corpuscular Hemoglobin Concent 34.8 32.0-36.0 g/dL Red Cell Distribution Width 14.3 11.8-14.3 % Platelet Count 345 140-450 10^3/uL Mean Platelet Volume 7.5 6.9-10.8 fL Neutrophils (%) (Auto) 45.1 37.0-80.0 % Lymphocytes (%) (Auto) 45.7 10.0-50.0 % Monocytes (%) (Auto) 7.2 0.0-12.0 % Eosinophils (%) (Auto) 1.5 0.0-7.0 % Basophils (%) (Auto) 0.5 0.0-2.0 % Neutrophils # (Auto) 3.0 1.6-8.6 10 ^3/uL Lymphocytes # (Auto) 3.0 0.4-5.4 10 ^3/uL Monocytes # (Auto) 0.5 0-1.3 10 ^3/uL Eosinophils # (Auto) 0.1 0-0.8 10 ^3/uL Basophils # (Auto) 0 0-0.2 10 ^3/uL Nucleated Red Blood Cells 0.0 % Sodium Level 141 136-145 mmol/L Potassium Level 4.1 3.5-5.1 mmol/L Chloride Level 106 98-107 mmol/L Carbon Dioxide Level 27 20-31 mmol/L Anion Gap 8 5-15 Blood Urea Nitrogen 16 9-23 mg/dL Creatinine 0.85 0.550-1.02 mg/dL Glomerular Filtration Rate Calc 89 >90 mL/min BUN/Creatinine Ratio 18.8 10.0-20.0 Serum Glucose 91 74-106 mg/dL Calcium Level 8.8 8.7-10.4 mg/dL Magnesium Level 2.0 1.6-2.6 mg/dL Total Bilirubin 0.4 0.2-1.0 mg/dL Aspartate Amino Transferase (AST) 16 13-40 U/L Alanine Aminotransferase (ALT) 12 7-40 U/L Alkaline Phosphatase 54 46-116 U/L Total Protein 6.1 5.7-8.2 g/dL Albumin 4.1 3.2-4.8 g/dL Troponin I High Sensitivity < 3 L </=34 ng/L Urine Color Light-orange Yellow Urine Clarity Turbid H Clear Urine pH 5.5 5.0-9.0 Urine Specific [place] 1.028 1.001-1.035 Urine Protein 1+ H Negative Urine Ketones Negative Negative Urine Blood 3+ H Negative /uL Urine Nitrite Negative Negative Urine Bilirubin Negative Negative Urine Urobilinogen Normal Negative mg/dL Urine Leukocyte Esterase 3+ Negative /uL Urine RBC 12 0 - 4 /hpf Urine WBC Clumps Present None Seen /hpf Urine Microscopic WBC 70 H 0-5 /HPF Urine Squamous Epithelial Cells Mod <5 /hpf Urine Amorphous Crystals Few None Seen /hpf Urine Bacteria Few H None Seen /hpf Urine Mucus Few None Seen Urine Glucose Normal Normal mg/dL Assessment r/o ACS HTN TIA PVCs hx of SVT Plan/Recommendation fu stress mpi ordered by ER MD kennedy are - echo was WNL ef 60%, mild RV enlarged in [facility] echo MRI brain was - ecg is SR and normal pt appears anxious and has numerous recent ER/ hospital visits without major abnormalities found Plan discussed with: Patient PRESCOTT,SHAHBAZ Prakash MD Apr 02, 2025 13:51
[2025-04-02 14:23] LABS: Triglycerides 121 mg/dL (< 150)
[2025-04-02 14:25] LABS: Cholesterol 171 mg/dL (< 200); HDL Cholesterol 30 mg/dL (40-59)
[2025-04-02] MEDS: cefTRIAXone 1GM/50ML D5W 50 ML IV ONE (15:15)
[2025-04-02 15:57] LABS: Amphetamine Screen, Urine Neg (NEGATIVE); Benzodiazephine Screen, Urine Neg (NEGATIVE)
[2025-04-02 15:58] LABS: Cannabinoid Screen, Urine Pos (NEGATIVE); Opiate Scree,Urine Neg (NEGATIVE)
[2025-04-02 15:59] LABS: Barbiturate Scree,Urine Neg (NEGATIVE); Cocaine Screen, Urine Neg (NEGATIVE); Phencyclidine Screen, Urine Neg (NEGATIVE)
--- NOTE | 2025-04-02 18:46 | ECG ---
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
[2025-04-03] VITALS (8 sets, daily range): BP systolic 100–137; BP diastolic 57–84; PULSE 59–85; RESP 18–20; TEMP 97.9–98.3; O2SAT 95–100
--- NOTE | 2025-04-03 07:33 | ECG ---
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
[2025-04-03] MEDS: cefTRIAXone 1GM/50ML D5W 50 ML IV SCH (08:31)
--- NOTE | 2025-04-03 11:34 | DVHSR ---
APPROVED REPORT EXAM: Two-dimensional and M-mode echocardiogram with Doppler and color Doppler. Blood Pressure: 106/63 mmHg INDICATION Evaluate cardiac function, wall motion RISK FACTORS Obesity: Height: 5'6", Weight: 215 DIMENSIONS LVDd5.2 (3.8-5.7cm)LA (2D)4.1 (1.9-4.0cm)Aortic Root3.4 (2.0-3.7cm) LVDs3.7 (2.5-4.0cm)LA (MM) (1.9-4.0cm)Aortic Cusp Exc1.8 (1.5-2.0cm) EF (%) 55.0 (55-70%)Rt. Atrium3.9 (1.9-4.0cm)Asc. Aorta cm IVSd1.0 (0.7-1.1cm)RV (D) (1.8-2.4cm) PWd1.0 (0.7-1.1cm) Mitral Valve MitralMitral Stenosis E wave0.74m/sMV Mean GR.mmHg A wave0.67m/sMV Peak GR.mmHg E/A ratio1.12D MVAcm2 DECEL [id number] 1/2 Timems Aortic Valve Aortic ValveAortic Stenosis V10.96m/Fabián Mean GR.3mmHg V21.16m/Fabián Peak GR.5mmHg LVOT Diameter2.2 (1.8-2.4cm)Doppler AVA3.14cm2 Pulmonic Valve V20.91m/s Tricuspid Valve TR Velocity2.56m/s [id number] Other Information Quality : Rhythm : Bradycardia with PVC's Technically limited study due to body habitus. Conclusion lvef 60-65% RV borderline enlarged, normal function normal atria no severe valve abnormalities noted
--- NOTE | 2025-04-03 11:42 | DVHDS2 ---
Discharge Summary Date of Admission Apr 01, 2025 at 19:52 Date of Discharge: Apr 03, 2025 Labs/Diagnostic Data: Laboratory Results Test 04/02/25 15:22 04/02/25 08:20 04/02/25 06:49 04/01/25 23:38 Urine Opiates Screen Neg (NEGATIVE) Urine Fentanyl Screen Neg (NEGATIVE) Urine Barbiturates Screen Neg (NEGATIVE) Urine Phencyclidine Screen Neg (NEGATIVE) Urine Amphetamines Screen Neg (NEGATIVE) Urine Benzodiazepines Screen Neg (NEGATIVE) Urine Cocaine Screen Neg (NEGATIVE) Urine Cannabinoids Screen Pos (NEGATIVE) Urine Test Negative (Negative) White Blood Count 6.6 10^3/uL (4.4-10.8) Red Blood Count 3.77 10^6/uL (4.0-5.20) Hemoglobin 11.9 g/dL (12.2-16.2) Hematocrit 34.2 % (36.0-46.0) Mean Corpuscular Volume 90.7 fL (80.0-100.0) Mean Corpuscular Hemoglobin 31.5 pg (28.0-32.0) Mean Corpuscular Hemoglobin Concent 34.8 g/dL (32.0-36.0) Red Cell Distribution Width 14.3 % (11.8-14.3) Platelet Count 345 10^3/uL (140-450) Mean Platelet Volume 7.5 fL (6.9-10.8) Neutrophils (%) (Auto) 45.1 % (37.0-80.0) Lymphocytes (%) (Auto) 45.7 % (10.0-50.0) Monocytes (%) (Auto) 7.2 % (0.0-12.0) Eosinophils (%) (Auto) 1.5 % (0.0-7.0) Basophils (%) (Auto) 0.5 % (0.0-2.0) Neutrophils # (Auto) 3.0 10 ^3/uL (1.6-8.6) Lymphocytes # (Auto) 3.0 10 ^3/uL (0.4-5.4) Monocytes # (Auto) 0.5 10 ^3/uL (0-1.3) Eosinophils # (Auto) 0.1 10 ^3/uL (0-0.8) Basophils # (Auto) 0 10 ^3/uL (0-0.2) Nucleated Red Blood Cells 0.0 % Sodium Level 141 mmol/L (136-145) Potassium Level 4.1 mmol/L (3.5-5.1) Chloride Level 106 mmol/L (98-107) Carbon Dioxide Level 27 mmol/L (20-31) Anion Gap 8 (5-15) Blood Urea Nitrogen 16 mg/dL (9-23) Creatinine 0.85 mg/dL (0.550-1.02) Glomerular Filtration Rate Calc 89 mL/min (>90) BUN/Creatinine Ratio 18.8 (10.0-20.0) Serum Glucose 91 mg/dL (74-106) Hemoglobin A1c 4.8 % A1C (<5.7) Calcium Level 8.8 mg/dL (8.7-10.4) Magnesium Level 2.0 mg/dL (1.6-2.6) Total Bilirubin 0.4 mg/dL (0.2-1.0) Aspartate Amino Transferase (AST) 16 U/L (13-40) Alanine Aminotransferase (ALT) 12 U/L (7-40) Alkaline Phosphatase 54 U/L (46-116) Total Protein 6.1 g/dL (5.7-8.2) Albumin 4.1 g/dL (3.2-4.8) Triglycerides Level 121 mg/dL (< 150) Cholesterol Level 171 mg/dL (< 200) LDL Cholesterol 132 mg/dL (< 100) HDL Cholesterol 30 mg/dL (40-59) Thyroid Stimulating Hormone (TSH) 4.50 uIU/mL (0.55-4.78) Troponin I High Sensitivity < 3 ng/L (</=34) Test 04/01/25 20:44 Urine Color Light-orange (Yellow) Urine Clarity Turbid (Clear) Urine pH 5.5 (5.0-9.0) Urine Specific [place] 1.028 (1.001-1.035) Urine Protein 1+ (Negative) Urine Ketones Negative (Negative) Urine Blood 3+ /uL (Negative) Urine Nitrite Negative (Negative) Urine Bilirubin Negative (Negative) Urine Urobilinogen Normal mg/dL (Negative) Urine Leukocyte Esterase 3+ /uL (Negative) Urine RBC 12 /hpf (0 - 4) Urine WBC Clumps Present /hpf (None Seen) Urine Microscopic WBC 70 /HPF (0-5) Urine Squamous Epithelial Cells Mod /hpf (<5) Urine Amorphous Crystals Few /hpf (None Seen) Urine Bacteria Few /hpf (None Seen) Urine Mucus Few (None Seen) Urine Glucose Normal mg/dL (Normal) Other Laboratory Tests 04/02/25 06:49 Brief Hx & Hospital Course: see dictated note Condition at Discharge: Fair Final Diagnosis/Problems List chest pain Discharge Disposition: Acute Care Facility Discharge Instruct/Medications Diet: Cardiac 2g Na,low cholest Activity: No Restrictions, As Tolerated Follow Up/Referral: fu with [facility] Medications: per mar Scheduled Aspirin (Aspir-81), 1 TAB PO DAILY, (Reported) Hydroxyzine Hcl (Hydroxyzine Hcl), 1 TAB PO TID, (Reported) Pregabalin (Lyrica), 1 CAP PO BID, (Reported) Zolpidem Tartrate (Ambien), 1 TAB PO QPM, (Reported) Scheduled PRN Ibuprofen Micronized (Motrin Tablet), 600 MG PO TID PRN Miscellaneous Medications Fluticasone-Salmeterol (Wixela Inhub 250-50 Mcg/Dose), 1 AER IN, (Reported) Hydrocodone-Acetaminophen (Hydrocodone/Acetaminophen 5-325 mg), 1 TAB PO, (Reported) Metoprolol Tartrate (Metoprolol Tartrate), 25 MG PO, (Reported) Ondansetron Odt 4MG Tab (Zofran Po), 4 MG PO, (Reported) Sumatriptan Succinate (Sumatriptan Succinate), 100 MG PO, (Reported) Sumatriptan Succinate (Imitrex), 50 MG PO, (Reported) Discharge Statement: "Patient was advised to return to the ER or call 911 if any headaches, dizziness, shortness of breath, chest pain, abdominal pain, bleeding, fevers, or worsening of medical condition. Patient was counseled about treatment plan, medications, possible side effects, patientverbalized understanding. All questions were answered to the best of my ability. This discharge took greater then 30 minutes in planning, reviewing documentation, counseling the patient, and discussing with other team members." ASSESSMENT ASSESSMENT Assessment chest pain Date of Service: Apr 03, 2025 Billing Provider: JOJO MOTLEY MD Common Visit Codes: 12817-QLS/[id number] DISCH DAY >30min JOJO MOTLEY MD Apr 03, 2025 11:42
--- NOTE | 2025-04-03 11:52 | DVHSR ---
APPROVED REPORT Exam: Nuclear Stress Test Indication: chest pain, r/o ischemic cardiomyopathy BMI: 0 Medical History Medical History: PVC's, Hypotension, - troponin, TIA Stress Test Details Stress Test: Pharmacologic stress testing performed using 0.4 mg of regadenoson per 5 mL given IV ov er 10 seconds. HR Resting HR: 75 bpmMax Heart Rate (APMHR): 180.976786 bpm Max HR Achieved: 110 bpmTarget HR (85% APMHR): 153.941227 bpm % of APMHR: 61.11 Recovery HR: 90 bpm BP Resting BP: 126/76 mmHg Recovery BP: 130/69 mmHg ECG Resting ECG: Sinus Rhythm Clinical Reason for Termination: Completed protocol Stress ECG Conclusion lvef 54% apical breast artifact noted isolated PVCs stress imaging suboptimal images, consider CCTA or other modaility if indicated NM EXAM: Myocardial Perfusion REST/STRESS Imaging Protocol: Rest Tc-99m/Stress Tc-99m 1 day Resting Data Rest SPECT myocardial perfusion imaging was performed in supine position 60 minutes following the int ravenous injection of 10.4 mCi of Tc-99m Sestamibi. Time of rest injection: 09:00 Date: 04/02/2025 Time of rest imagin:00 Date: 04/02/2025 Administration Route: IV Administration Site: Left Arm Pharmacologic Stress Pharmacologic stress test was performed by injecting Regadenoson 0.4 mg IV push followed by the intra venous injection of 30.1 mCi of Tc-99m Sestamibi. Time of stress injection: 11:26 Date: 04/02/2025 Time of stress imagin:26 Date: 04/02/2025 Administration Route: IV Administration Site: Left Arm Gated Stress SPECT was performed 60 minutes after stress injection. The images were gated to evaluate regional wall motion and calculate left ventricular ejection fracti on. Stress only was performed in the Supine position. Nuclear Conclusion lvef 54% apical breast artifact noted isolated PVCs stress imaging suboptimal images, consider CCTA or other modaility if indicated
--- NOTE | 2025-04-03 11:52 | DVHDS ---
DATE OF DISCHARGE: 04/03/2025 HISTORY OF PRESENT ILLNESS: The patient is a 40-year-old lady who came with complaints of severe chest pain and frequent PVCs. The patient has previous history of hypertension as well as TIA and CVA. HOSPITAL COURSE: The patient had a Cardiolite stress test that is currently pending. Echocardiogram results are also pending. The patient was seen in Cardiology consult by Dr. Peña. The patient as per his note, echocardiogram was within normal limits with an ejection fraction of 60%. The EKG was also sinus rhythm and normal. The patient, however, continues to have chest pain and wishes transferred to [place]. The patient will be transferred to [place] as per her wishes. Also states that the patient's troponin levels were negative for acute [place]. Her TSH was also normal at 4.5. FINAL DIAGNOSES: * Chest pain with questionable coronary artery disease. * UTI. * Bradycardia. * PVCs. * History of CVA. * Obesity. * Anxiety. Time spent in discharge planning and review of plan with the patient and nursing was 39 minutes. MD MONICA Jules/GORDO TID: [id number] RECEIPT: [id number]
[2025-04-03] MEDS: NITROGLYCERIN 0.4 MG SL TAB SL PRN (12:04)
--- NOTE | 2025-04-03 14:40 | ECG ---
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
--- NOTE | 2025-04-03 19:24 | ECG ---
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
[2025-04-03] MEDS: IOHEXOL 350 MG/ML 100ML IJ ONE (22:34)
--- NOTE | 2025-04-03 23:09 | DVH ---
STUDY: CT CT ANGIO CHEST CONTRAST Indication: To r/o PE TECHNIQUE: Axial images were obtained through the chest with reformat images post intravenous contr ast. Reconstruction processing of 3D angiographic images of the vessels was obtained. 80 mL of omnipaque 35mg/dl was administered. DLP: 989 FINDINGS: PULMONARY ARTERIES: Limited evaluation due to motion artifact and contrast bolus/timing. Evaluation of segmental and subsegmental branches are incomplete due to this limitation. No acute pulmonary emboli within the main or lobar branches. LUNGS AND PLEURA: No focal consolidations. No definite pulmonary edema. No mass or nodule. No pleural effusion. No pneu mothorax. MEDIASTINUM: No lymphadenopathy or mass. The heart shows no acute findings. The aorta shows no acute findings. The pulmonary trunk, and branches of the vessels in the mediastinu m are within normal limits. SUPRACLAVICULAR AND AXILLARY: No abnormalities seen in these regions. No mass or significant lymphadenopathy. UPPER ABDOMEN: The visualized upper abdomen is unremarkable. BONES AND SOFT TISSUES: The ribs are unremarkable. The visualized spine shows no significant acute findings. No focal bony mass lesions noted. The subcutaneous soft tissues are unremarkable. IMPRESSION: Limited evaluation due to motion artifact and contrast bolus/timing. Evaluation of segmental and subsegmental branches are incomplete due to this limitation. No acute pulmonary emboli within the main or lobar branches. No focal consolidations.
[2025-04-03] MEDS: TEMAZEPAM 15 MG CAP PO ONE (23:54)
[2025-04-04] MEDS: ACETAMINOPHEN 325 MG TAB PO PRN
[2025-04-04 05:00] VITALS: BP 104/68; PULSE 69; RESP 18; TEMP 98; O2SAT 96
[2025-04-04 08:00] VITALS: PULSE 80; PULSE 82; RESP 18; O2SAT 100
[2025-04-04 09:00] VITALS: BP 108/85; PULSE 85; RESP 19; TEMP 97.9; O2SAT 100
--- NOTE | 2025-04-04 11:07 | DVHPN2 ---
Progress Note Date Seen: Apr 04, 2025 Medical Necessity Reason Pt with a Central, PICC or Fol: No Subjective Patient reports: No new complaints Review of Systems: HEENT:Normal, CVS:Normal, RESPIRATORY:Normal, GI:Normal, :Normal, MSK:Normal, NEURO:Normal Objective vital signs Vital Sign Date Time Temp Pulse Resp B/P (MAP) Pulse Ox O2 Delivery O2 Flow Rate FiO2 04/04/25 09:47 72 18 120/78 04/04/25 08:00 100 Room Air* 0 21 04/04/25 05:00 98.0 98.0 Total Intake and Output 04/03/25 04/03/25 04/04/25 15:00 23:00 07:00 Intake Total 50 ml 1250 ml 650 ml Balance 50 ml 1250 ml 650 ml medications Current Medications Medications Dose Ordered Sig/Dania Route Start Time Stop Time Status Last Admin Dose Admin Sodium Chloride 10 ml Q8HR IV 04/01/25 22:00 04/04/25 06:38 10 ML Docusate Sodium 100 mg BIDPRN PRN PO 04/01/25 20:00 Acetaminophen 650 mg Q6HP PRN PO 04/01/25 20:00 04/04/25 00:00 650 MG Acetaminophen/ Hydrocodone Bitart 1 tab Q4HP PRN PO 04/01/25 20:00 04/04/25 06:36 1 TAB Ondansetron HCl 4 mg Q4HP PRN IV 04/01/25 20:00 04/03/25 22:18 4 MG Nitroglycerin 0.4 mg Q5MINP PRN SL 04/01/25 20:00 04/03/25 12:04 0.4 MG Morphine Sulfate 2 mg Q30M PRN IV 04/01/25 20:00 04/04/25 09:17 2 MG Ceftriaxone Sodium 50 ml @ 100 mls/hr DAILY@09 IV 04/03/25 09:00 04/04/25 09:17 100 MLS/HR Ketorolac Tromethamine 15 mg Q6HPRN PRN IV 04/02/25 13:30 04/07/25 13:29 04/04/25 09:16 15 MG Morphine Sulfate 1 mg Q4HP PRN IV 04/02/25 16:30 04/03/25 22:19 1 MG Examination: GENERAL:Normal, HEENT:Normal, NECK:Normal, LUNGS:Normal, CVS:Normal, ABDOMEN:Normal, MSK:Normal, SKIN:Normal, NEURO:Normal, :Normal laboratory and microbiology Laboratory Tests 04/02/25 06:49 Test 04/02/25 06:49 Range/Units Serum Glucose 91 74-106 mg/dL Microbiology Date/Time Source Procedure Growth Status 04/02/25 15:22 Voided Urine Urine Culture - Final Complete Problem List/Assessment/Plan Problem List/Assessment/Plan #1 chest pain ?cad: stress test ? 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
[2025-04-04] MEDS: MAGNESIUM OXIDE 400 MG TAB PO ONE (11:15)
[2025-04-04 13:00] VITALS: BP 108/81; PULSE 81; RESP 18; TEMP 98.4; O2SAT 99
[2025-04-04 17:00] VITALS: BP 105/75; PULSE 81; RESP 18; TEMP 98.4; O2SAT 99
[2025-04-04 18:24] VITALS: BP 135/84; PULSE 61; RESP 18; TEMP 36.6
[2025-04-05] MEDS ORDERED: MAGNESIUM OXIDE 400 MG TAB PO SCH (10:00)
== END 2025-04-04 19:33 | disposition short-term general hospital (02) | DRG 303 ==
LOC: EDBD 12:30 → ER 12:30 → OVERFLOW 19:52 → WEST WING 21:43 → TELE-WESTW 04-02 03:45
PROVIDERS: ADMIT Internal Medicine; ATTEND Internal Medicine
PROC: 05HA33Z Insertion of Infusion Device into Left Brachial Vein, Percutaneous Approach (ICD-10-PCS; principal; 2025-04-03)
PROC: B54NZZA Ultrasonography of Left Upper Extremity Veins, Guidance (ICD-10-PCS; 2025-04-03)
DX: I25.10 Atherosclerotic heart disease of native coronary artery without angina pectoris (principal); N39.0 Urinary tract infection, site not specified; I47.10 Supraventricular tachycardia, unspecified; I10 Essential (primary) hypertension; I49.3 Ventricular premature depolarization; E66.9 Obesity, unspecified; F41.9 Anxiety disorder, unspecified; Z79.1 Long term (current) use of non-steroidal anti-inflammatories (NSAID); Z79.899 Other long term (current) drug therapy; Z68.34 Body mass index [BMI] 34.0-34.9, adult; Z81.8 Family history of other mental and behavioral disorders; Z82.49 Family history of ischemic heart disease and other diseases of the circulatory system; Z79.82 Long term (current) use of aspirin; Z86.73 Personal history of transient ischemic attack (TIA), and cerebral infarction without residual deficits
CPT/HCPCS: 36415; 71275; 78452; 80048; 80053; 80061; 80307; 81001; 81025; 83036; 83735; 84443; 84484; 85025; 87086; 93005; 93017; 93306; 96374; 96375; 99291; 99292; G0378; J1885; J2405

== ENCOUNTER 2025-07-03 20:50 | Emergency (ER) | payer OTHER ==
[~2025-07-03] VITALS: Ht 165.1 cm; Wt 100.0 kg
[~2025-07-03 20:50] MED LIST changes: +ASPI1TAB20 PO; +FLUT1AER6 IN; +HYDR1TAB97 PO; +HYDR50TA69 PO; +METO25TA5 PO; +PREG50CA PO; +SUMA100T15 PO; +SUMA50TA2 PO; +ZOFR4T PO; +ZOLP10TA PO
[2025-07-03 21:20] LABS: Hematocrit 34.2 % (36.0-46.0); Hemoglobin 11.3 g/dL (12.2-16.2); Mean Corpuscular Hemoglobin 29.6 pg (28.0-32.0); Mean Corpuscular Volume 89.5 fL (80.0-100.0); Nucleated Red Blood Cells % 0.0 %
--- NOTE | 2025-07-03 21:39 | ED.PDOC ---
HPI Comments 40-year-old woman brought in by ambulance complains of some tight anterior chest pain and a tingling feeling around her mouth and neck area. EMS notes that the patient appeared anxious on route Chief Complaint: Chest Pain Time Seen by MD: 21:00 Primary Care Provider: JENNIFER Allergies: Coded Allergies: Metoclopramide (Verified Allergy, Unknown, 05/15/17) Nalbuphine (Verified Allergy, Unknown, 05/15/17) Home Meds Active Scripts Ibuprofen Micronized (MOTRIN TABLET) 600 Mg Tb, 600 MG PO TID PRN for 5 Days, #15 TAB *Black box warning-NSAIDS can increase risk of TX & hypertension, GI irritation, ulceration, bleed, perferation. Do not use post cardiac surgery. Use short duration/lowest effective dose. Prov:LEDA MCKENNA MD 01/19/24 Reported Medications Fluticasone-Salmeterol (Wixela Inhub 250-50 Mcg/Dose) 1 Aer Aer, 1 AER IN, AER 04/01/25 Metoprolol Tartrate (Metoprolol Tartrate) 25 Mg Tab, 25 MG PO, TAB 04/01/25 Sumatriptan Succinate (Imitrex) 50 Mg Tab, 50 MG PO, TAB 04/01/25 Sumatriptan Succinate (Sumatriptan Succinate) 100 Mg Tab, 100 MG PO, TAB 04/01/25 Aspirin (Aspir-81) 81 Mg Tab, 1 TAB PO DAILY, #30 TAB 5 Refills 04/01/25 Pregabalin (Lyrica) 50 Mg Cap, 1 CAP PO BID, #60 CAP 04/01/25 Hydrocodone-Acetaminophen (Hydrocodone/Acetaminophen 5-325 mg) 1 Tab Tab, 1 TAB PO, TAB 04/01/25 Hydroxyzine Hcl (Hydroxyzine Hcl) 50 Mg Tab, 1 TAB PO TID, #90 TAB 2 Refills 04/01/25 Zolpidem Tartrate (Ambien) 10 Mg Tab, 1 TAB PO QPM, #30 TAB 5 Refills 04/01/25 Ondansetron Odt 4MG Tab (ZOFRAN PO) 4 Mg Tb, 4 MG PO, TAB ODT TAB-DISSOLVE IN MOUTH, THEN SWALLOW 04/01/25 Information Source: Patient Mode of Arrival: EMS Severity: Moderate Timing: Hours Duration: Since onset Past Medical History PAST MEDICAL HISTORY: HTN Surgical History: Denies all surgeries 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 PAINTING 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 History Family History Family History: Reviewed,noncontributory to illness Social History Smoker: Non-Smoker Alcohol: Denies ETOH Use Drugs: Denies Drug Use Lives In: Home Constitutional: reports: fatigue, malaise Cardiovascular: reports: chest pain Neurological: reports: paresthesia All Other Systems: Reviewed and Negative Physical Exam General Appearance: Moderate Distress HEENT: Normal ENT Inspection, Pharynx Normal, TMs Normal Neck: Full Range of Motion, Non-Tender, Normal, Normal Inspection Respiratory: Chest Non-Tender, Lungs Clear, No Accessory Muscle Use, No Respiratory Distress, Normal Breath Sounds Cardiovascular: No Edema, No JVD, No Murmur, No Gallop, Normal Peripheral Pulses, Regular Rate/Rhythm Breast Exam: Deferred Gastrointestinal: No Organomegaly, Non Tender, No Pulsatile Mass, Normal Bowel Sounds, Soft Genitalia: Deferred Pelvic: Deferred Rectal: Deferred Extremities: No calf tenderness, Normal capillary refill, Normal inspection, Normal range of motion, Non-tender, No pedal edema Musculoskeletal : Apperance: Normal Neurologic: Alert, clinic md associate II-XII nml as Tested, No Motor Deficits, Normal Affect, Normal Mood, No Sensory Deficits Cerebellar Function: Normal Reflexes: Normal Skin: Dry, Normal Color, Warm Lymphatic: No Adenopathy Was a procedure done? Was a procedure done?: No CP Differential Dx Differential Diagnosis: A-fib, A-Flutter, Angina, Anxiety / Panic Attack, Electrolyte Disorder, Heart Failure, MAT, TX, PAC's, V-Fib, V-Tach, Other X-Ray, Labs, Meds, VS Vital Signs Date Time Temp Pulse Resp B/P (MAP) Pulse Ox O2 Delivery O2 Flow Rate FiO2 07/04/25 00:16 98.1 69 20 110/70 (83) 99 98.1 07/03/25 22:39 69 20 110/70 07/03/25 22:15 84 100 Room Air* 0 21 07/03/25 22:14 97.7 84 19 115/76 (89) 97.7 07/03/25 22:09 84 19 115/76 07/03/25 21:55 79 07/03/25 21:01 99.1 110 20 149/88 99 99.1 07/03/25 20:54 107 Lab Test 07/03/25 21:48 07/03/25 21:07 Range/Units Troponin I High Sensitivity < 3 L < 3 L </=34 ng/L White Blood Count 9.5 4.4-10.8 10^3/uL Red Blood Count 3.82 L 4.0-5.20 10^6/uL Hemoglobin 11.3 L 12.2-16.2 g/dL Hematocrit 34.2 L 36.0-46.0 % Mean Corpuscular Volume 89.5 80.0-100.0 fL Mean Corpuscular Hemoglobin 29.6 28.0-32.0 pg Mean Corpuscular Hemoglobin Concent 33.1 32.0-36.0 g/dL Red Cell Distribution Width 16.0 H 11.8-14.3 % Platelet Count 423 140-450 10^3/uL Mean Platelet Volume 7.0 6.9-10.8 fL Neutrophils (%) (Auto) 50.6 37.0-80.0 % Lymphocytes (%) (Auto) 41.7 10.0-50.0 % Monocytes (%) (Auto) 5.6 0.0-12.0 % Eosinophils (%) (Auto) 1.1 0.0-7.0 % Basophils (%) (Auto) 1.0 0.0-2.0 % Neutrophils # (Auto) 4.8 1.6-8.6 10 ^3/uL Lymphocytes # (Auto) 4.0 0.4-5.4 10 ^3/uL Monocytes # (Auto) 0.5 0-1.3 10 ^3/uL Eosinophils # (Auto) 0.1 0-0.8 10 ^3/uL Basophils # (Auto) 0.1 0-0.2 10 ^3/uL Nucleated Red Blood Cells 0.0 % Sodium Level 141 136-145 mmol/L Potassium Level 3.2 L 3.5-5.1 mmol/L Chloride Level 106 98-107 mmol/L Carbon Dioxide Level 26 20-31 mmol/L Anion Gap 9 5-15 Blood Urea Nitrogen 10 9-23 mg/dL Creatinine 0.78 0.550-1.02 mg/dL Glomerular Filtration Rate Calc 98 >90 mL/min BUN/Creatinine Ratio 12.8 10.0-20.0 Serum Glucose 101 74-106 mg/dL Calcium Level 8.8 8.7-10.4 mg/dL Magnesium Level 1.8 1.6-2.6 mg/dL Total Bilirubin 0.2 0.2-1.0 mg/dL Aspartate Amino Transferase (AST) 15 13-40 U/L Alanine Aminotransferase (ALT) 17 7-40 U/L Alkaline Phosphatase 68 46-116 U/L Total Protein 6.2 5.7-8.2 g/dL Albumin 3.9 3.2-4.8 g/dL Current Medications Medications (Trade) Dose Ordered Sig/Dania Route Start Time Stop Time Status Last Admin Morphine Sulfate 4 mg ONCE ONCE IV 07/03/25 21:45 07/03/25 21:46 DC 07/03/25 22:09 Ondansetron HCl (Zofran) 4 mg ONCE ONCE IV 07/03/25 21:45 07/03/25 21:46 DC 07/03/25 22:07 Potassium Chloride (Klor-Con Tablet) 20 meq ONCE ONCE PO 07/03/25 23:15 07/03/25 23:16 DC 07/04/25 00:12 Time of 1ST Reevaluation: 21:00 Reevaluation 1ST: Unchanged Patient Education/Counseling: Diagnosis, Treatment Family Education/Counseling: No Family Present SEPSIS Sepsis Screen Date sepsis recognized/suspect: Jul 03, 2025 Time Sepsis recognized/suspect: 2054 Recent Procedure: No On Antibiotic Therapy: No Respiratory Rate >20: No Heart Rate >90: Yes Temp<36 C (96.8 F) or >38.3 C: No SBP <90 or MAP <65 mmHG: No New Acute Mental Status Change: No Is the patient on CPAP, BIPAP,: No Physician Orders Electrocardigram (07/04/25 00:00) Chest Xray 1 View (07/03/25 21:11) Vital Signs Date Time Temp Pulse Resp B/P (MAP) Pulse Ox O2 Delivery O2 Flow Rate FiO2 07/04/25 00:16 98.1 69 20 110/70 (83) 99 98.1 07/03/25 22:39 69 20 110/70 07/03/25 22:15 84 100 Room Air* 0 21 07/03/25 22:14 97.7 84 19 115/76 (89) 97.7 07/03/25 22:09 84 19 115/76 07/03/25 21:55 79 07/03/25 21:01 99.1 110 20 149/88 99 99.1 07/03/25 20:54 107 Laboratory Tests Test 07/03/25 21:07 White Blood Count 9.5 10^3/uL (4.4-10.8) Medications Medications Dose Ordered Sig/Dania Route Start Time Stop Time Status Last Admin Dose Admin Morphine Sulfate 4 mg ONCE ONCE IV 07/03/25 21:45 07/03/25 21:46 DC 07/03/25 22:09 Ondansetron HCl 4 mg ONCE ONCE IV 07/03/25 21:45 07/03/25 21:46 DC 07/03/25 22:07 Potassium Chloride 20 meq ONCE ONCE PO 07/03/25 23:15 07/03/25 23:16 DC 07/04/25 00:12 Departure 1 Departure Time of Disposition: 23:00 Impression: Primary Impression: Atypical chest pain Additional Impression: Paresthesia Disposition: 01 HOME / SELF CARE / HOMELESS Condition: Stable Discharged With: Self Critical Care Note Critical Care Time?: No Stability Stability form required: No Heart Score Heart Score: Heart Score Response (Comments) Value History Slightly Suspicious 0 EKG Normal 0 Age <45 0 Risk Factors No known risk factors 0 Troponin Normal limit 0 Total 0 OLIVE CARUSO MD Jul 03, 2025 21:39
[2025-07-03 21:41] LABS: Alanine Aminotransferase 17 U/L (7-40); Albumin 3.9 g/dL (3.2-4.8); Alkaline Phosphatase 68 U/L (46-116); Anion Gap 9 (5-15); BUN/Creatinine Ratio 12.8 (10.0-20.0); Bilirubin, Total 0.2 mg/dL (0.2-1.0); Blood Urea Nitrogen 10 mg/dL (9-23); Calcium 8.8 mg/dL (8.7-10.4); Carbon Dioxide 26 mmol/L (20-31); Chloride 106 mmol/L (98-107); Glucose 101 mg/dL (74-106); Potassium 3.2 mmol/L (3.5-5.1); Sodium 141 mmol/L (136-145); Total Protein 6.2 g/dL (5.7-8.2)
--- NOTE | 2025-07-03 22:01 | DVH ---
EXAM: XY CHEST XRAY 1 VIEW HISTORY: chest pain TECHNIQUE: 1 view of the chest COMPARISON: CT CT ANGIO CHEST CONTRAST on DOS: 04/03/25 FINDINGS/IMPRESSION: LUNGS: No pleural effusion, consolidation, or pneumothorax. MEDIASTINUM: Unremarkable. BONES: No acute osseous abnormality. OTHER: None.
[2025-07-03] MEDS: ONDANSETRON HCL 4 MG/2 ML VIAL IV ONE (22:07)
[2025-07-03] MEDS: MORPHINE SULFATE 4 MG/ML SYR/VIAL IV ONE (22:09)
[2025-07-03 22:15] VITALS: PULSE 84; O2SAT 100
--- NOTE | 2025-07-03 23:13 | ECG ---
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
--- NOTE | 2025-07-03 23:44 | ECG ---
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
[2025-07-04] MEDS: POTASSIUM CHL 20 Meq TABLET PO ONE (00:12)
[2025-07-04 00:16] VITALS: BP 110/70; PULSE 69; RESP 20; TEMP 98.1; O2SAT 99
== END 2025-07-04 00:17 | disposition home or self-care (01) ==
LOC: ER 20:50 → EDBD 20:50 → EDUNIT# 20:50 → ER 07-04 00:17
DX: R07.89 Other chest pain (principal); R00.0 Tachycardia, unspecified; I10 Essential (primary) hypertension
CPT/HCPCS: 36415; 71045; 80053; 83735; 84484; 85025; 93005; 96374; 96375; 99285; J2270; J2405